=== PATIENT | male | born 1980 | race Two or more races ===

== ENCOUNTER 2018-05-01 07:00 | Emergency (ER) | payer MEDICAID, OTHER ==
[2018-05-01 07:07] VITALS: BP 147/97
[2018-05-01] MEDS ORDERED: IBUPROFEN 600 MG TAB PO ONE (07:24)
--- NOTE | 2018-05-01 07:25 | EDPHY ---
H & P Time Seen by Provider: 05/01/18 07:07 HPI/ROS: CHIEF COMPLAINT: Lump in right armpit HISTORY OF PRESENT ILLNESS: Patient says he notices this every time he does stretching exercises with shoulders. He developed swelling and redness in the anterior portion of his right axilla over the last 3-4 days. Swelling and painful to touch. Redness over the area but no lymphangitis. No weakness or numbness in the hand. REVIEW OF SYSTEMS: No fever or chills PAST MEDICAL HISTORY: Pilonidal cyst Social history: Nonsmoker General Appearance: Alert and conversant, cooperative. 1 x 2 cm area of localized erythema and fluctuance on right anterior axilla. Normal motor sensory and vascular in the right hand. No surrounding erythema or lymphangitis or crepitus. Not pulsatile. Emergency Department course/MDM: Procedure: Abscess drainage. The patient's abscess was located on the right axilla. I obtained verbal consent from the patient to drain the abscess who was informed about the possibility of bleeding and pain. The area was prepped and draped in the usual sterile fashion, with 1% lidocaine without epinephrine used for local anesthesia. The abscess was incised with a #11 scalpel and a moderate amount of purulent drainage was expressed. I placed iodoform packing. The patient tolerated the procedure well. The procedure was performed by myself. Does not have indication for antibiotics. Localized abscess in immunocompetent patient without surrounding cellulitis. Oral ibuprofen. Patient queried whether this was a lymph node, I think more likely abscess. Smoking Status: Never smoked Constitutional: Initial Vital Signs Temperature (C) 36.8 C 05/01/18 07:03 Heart Rate 72 05/01/18 07:03 Respiratory Rate 18 05/01/18 07:03 Blood Pressure 147/97 H 05/01/18 07:03 O2 Sat (%) 97 05/01/18 07:03 O2 Delivery Mode Room Air Allergies/Adverse Reactions: No Known Allergies Allergy (Unverified 02/10/13 21:40) Home Medications: Medication Instructions Recorded Flagyl 05/01/18 MDM/Departure - MDM Medications Given: Discontinued Medications Ibuprofen (Motrin) 600 mg PO EDNOW ONE Stop: 05/01/18 07:25 Last Admin: 05/01/18 07:31 Dose: 600 mg - Depart Disposition: Home, Routine, Self-Care Clinical Impression: Abscess of axilla, right Condition: Good Instructions: Abscess (ED) Additional Instructions: Keep dressing in place for 24 hr, when the packing falls out you can wash with soap and water and put a Band-Aid over the area if there is some oozing or bleeding. Referrals: Sol Escamilla MD [Medical Doctor] - As per Instructions
== END 2018-05-01 07:33 | disposition home or self-care (01) ==
PROC: 0H9BXZZ Drainage of Right Upper Arm Skin, External Approach (ICD-10-PCS; principal; 2018-05-01)
DX: L02.411 Cutaneous abscess of right axilla (principal)